=== PATIENT | female | born 1985 | race Caucasian/White ===

== ENCOUNTER → 2024-02-01 11:57 | Outpatient (REF) | payer OTHER, SELFPAY | LOC: WDC 11:57 | PROVIDERS: ATTENDING PHYSICIAN Nurse Practitioner; PRIMARYCARE PHYSICIAN Internal Medicine | DX: Z12.31 Encounter for screening mammogram for malignant neoplasm of breast (principal) | CPT/HCPCS: 77063; 77067 ==

== ENCOUNTER → 2024-07-30 08:36 | Outpatient (REF) | payer OTHER, SELFPAY | LOC: WDC 08:36 | PROVIDERS: ATTENDING PHYSICIAN Nurse Practitioner | DX: R92.333 Mammographic heterogeneous density, bilateral breasts (principal) | CPT/HCPCS: 76641 ==

== ENCOUNTER → 2025-02-03 12:25 | Outpatient (REF) | payer OTHER, SELFPAY | LOC: WDC 12:25 | PROVIDERS: ATTENDING PHYSICIAN Nurse Practitioner Adult Health; FAMILY PHYSICIAN Nurse Practitioner | DX: Z12.31 Encounter for screening mammogram for malignant neoplasm of breast (principal) | CPT/HCPCS: 77063; 77067 ==